=== PATIENT | male | born 1975 | race Two or more races ===

== ENCOUNTER 2022-04-12 14:12 | Inpatient (IN) | payer OTHER ==
[~2022-04-12] VITALS: Ht 182.9 cm; Wt 183.2 kg
[2022-04-12] MEDS ORDERED: hydrALAZINE HCL 20 MG/ML VL IV ONE (14:45)
[2022-04-12] MEDS ORDERED: ASPirin 81 mg TAB PO ONE (14:45)
[2022-04-12 15:18] LABS: Basophils # (auto) 0.1 10 ^3/uL (0-0.2); Basophils % (auto) 0.9 % (0.0-2.0); Eosinophils # (auto) 0.3 10 ^3/uL (0-0.8); Eosinophils % (auto) 2.6 % (0.0-7.0); Hematocrit 51.3 % (41.0-53.0); Hemoglobin 16.2 g/dL (13.5-17.5); Lymphocytes # (auto) 2.2 10 ^3/uL (0.4-5.4); Lymphocytes % (auto) 22.8 % (10.0-50.0); Mean Corpuscular Hemoglobin 28.1 pg (28.0-32.0); Mean Corpuscular Hgb Conc. 31.5 g/dL (32.0-36.0); Monocytes % (auto) 9.8 % (0.0-12.0); Neutrophils # (auto) 6.2 10 ^3/uL (1.6-8.6); Neutrophils % (auto) 63.9 % (37.0-80.0); Nucleated Red Blood Cells % 0.2 %; Red Blood Cells 5.77 10^6/uL (4.5-5.90); Red Cell Distribution Width 16.3 % (11.8-14.3); White Blood Cell 9.7 10^3/uL (4.4-10.8)
[2022-04-12 15:24] LABS: Albumin 3.1 g/dL (3.4-5.0); BUN/Creatinine Ratio 16.3; Calcium 9.1 mg/dL (8.5-10.1); Magnesium 2.2 mg/dL (1.6-2.6); Potassium 4.3 mmol/L (3.5-5.1)
[2022-04-12 15:26] LABS: Bilirubin, Total 1.3 mg/dL (0.2-1.0); Total Protein 7.9 g/dL (6.4-8.2)
[2022-04-12 16:14] LABS: INR 1.05 (0.9-1.15); Partial Thromboplastin Time 29.3 sec (24.6-33.4)
[2022-04-12 16:24] LABS: Urine Bacteria NONE SEEN /hpf (None Seen); Urine Blood 1+ /uL (Negative); Urine Hyaline Cast FEW /lpf (0 - 2); Urine Specific Gravity 1.016 (1.001-1.035); Urine WBC 3 /hpf (0 - 3)
[2022-04-12] MEDS ORDERED: ONDANSETRON HCL 4 MG/2 ML VIAL IV PRN (21:45)
[2022-04-12] MEDS ORDERED: MORPHINE SULFATE INJ 2 MG/ml SYRG IV PRN (21:45)
[2022-04-12] MEDS ORDERED: TEMAZEPAM 15 MG CAP PO PRN (21:45)
[2022-04-12] MEDS ORDERED: NITROGLYCERIN 0.4 MG SL TAB SL PRN (21:45)
[2022-04-12] MEDS ORDERED: LABETALOL HCL 5 MG/ML 4ML SYRINGE IV ONE (22:00)
[2022-04-12] MEDS ORDERED: FUROSEMIDE 40 MG/4 ML VIAL IV ONE (23:00)
[2022-04-13] MEDS: ACETAMINOPHEN 325 MG TAB PO PRN ×2 (04:09→23:26)
[2022-04-13 05:46] LABS: Basophils # (auto) 0.1 10 ^3/uL (0-0.2); Eosinophils # (auto) 0.1 10 ^3/uL (0-0.8); Eosinophils % (auto) 1.2 % (0.0-7.0); Hematocrit 43.9 % (41.0-53.0); Hemoglobin 14.6 g/dL (13.5-17.5); Lymphocytes # (auto) 1.4 10 ^3/uL (0.4-5.4); Lymphocytes % (auto) 13.7 % (10.0-50.0); Mean Corpuscular Hemoglobin 29.1 pg (28.0-32.0); Mean Corpuscular Hgb Conc. 33.2 g/dL (32.0-36.0); Mean Corpuscular Volume 87.6 fL (80.0-100.0); Monocytes % (auto) 9.7 % (0.0-12.0); Neutrophils # (auto) 7.4 10 ^3/uL (1.6-8.6); Neutrophils % (auto) 74.4 % (37.0-80.0); Red Blood Cells 5.01 10^6/uL (4.5-5.90); Red Cell Distribution Width 16.6 % (11.8-14.3)
[2022-04-13] MEDS ORDERED: FUROSEMIDE 20 MG/2 ML VIAL IV SCH (06:00)
[2022-04-13] MEDS: cloNIDine HCL 0.1 MG TAB PO PRN (06:09)
[2022-04-13 07:10] LABS: BUN/Creatinine Ratio 16.7; Calcium 8.7 mg/dL (8.5-10.1); Potassium 3.5 mmol/L (3.5-5.1)
[2022-04-13] MEDS ORDERED: MORPHINE SULFATE 4 MG/ML SYR/VIAL IV ONE (09:15)
[2022-04-13] MEDS ORDERED: amLODIPine BESYLATE 5 MG TAB PO SCH (10:00)
[2022-04-13] MEDS ORDERED: LISINOPRIL 10 MG TAB PO SCH (10:00)
[2022-04-13] MEDS: ENOXAPARIN SOD 40 MG/0.4 ML SYRINGE SC SCH (10:33)
[2022-04-13] MEDS: HCTZ 25 MG TAB PO SCH (10:33)
[2022-04-13] MEDS: ASPirin 81 mg TAB PO SCH (10:33)
[2022-04-13] MEDS: LOSARTAN POTASSIUM 50 MG TAB PO SCH (15:03)
[2022-04-13] MEDS: BUMETANIDE 2.5mg/10ml (0.25 mg/ml) INJ IV SCH (15:04)
[2022-04-13] MEDS: CARVEDILOL 3.125 MG TAB PO SCH (22:34)
[2022-04-13 22:44] VITALS: BP 150/96
[2022-04-13 22:46] VITALS: BP 150/96
[2022-04-14 05:00] VITALS: BP 132/80
[2022-04-14 05:17] LABS: Basophils # (auto) 0.1 10 ^3/uL (0-0.2); Basophils % (auto) 0.8 % (0.0-2.0); Eosinophils # (auto) 0.3 10 ^3/uL (0-0.8); Eosinophils % (auto) 3.4 % (0.0-7.0); Hematocrit 43.2 % (41.0-53.0); Hemoglobin 14.2 g/dL (13.5-17.5); Lymphocytes % (auto) 21.9 % (10.0-50.0); Mean Corpuscular Hemoglobin 28.8 pg (28.0-32.0); Mean Corpuscular Hgb Conc. 32.9 g/dL (32.0-36.0); Mean Corpuscular Volume 87.4 fL (80.0-100.0); Monocytes # (auto) 0.9 10 ^3/uL (0-1.3); Monocytes % (auto) 10.5 % (0.0-12.0); Neutrophils # (auto) 5.7 10 ^3/uL (1.6-8.6); Neutrophils % (auto) 63.4 % (37.0-80.0); Nucleated Red Blood Cells % 0.1 %; Red Blood Cells 4.95 10^6/uL (4.5-5.90); Red Cell Distribution Width 16.5 % (11.8-14.3)
[2022-04-14 05:33] LABS: BUN/Creatinine Ratio 18.4; Calcium 8.7 mg/dL (8.5-10.1); Potassium 3.6 mmol/L (3.5-5.1)
[2022-04-14] MEDS: BUMETANIDE 2.5mg/10ml (0.25 mg/ml) INJ IV SCH ×2 (06:43→18:00)
[2022-04-14] MEDS ORDERED: INFLUENZA QUAD 2022-2023 0.5 ML SYRG IM ONE (07:00)
[2022-04-14 09:00] VITALS: BP 159/89
[2022-04-14] MEDS: CARVEDILOL 3.125 MG TAB PO SCH ×2 (10:00→22:08)
[2022-04-14] MEDS: ENOXAPARIN SOD 40 MG/0.4 ML SYRINGE SC SCH (10:00)
[2022-04-14] MEDS: ASPirin 81 mg TAB PO SCH (11:16)
[2022-04-14] MEDS: LOSARTAN POTASSIUM 50 MG TAB PO SCH (11:17)
[2022-04-14] MEDS: HCTZ 25 MG TAB PO SCH (11:18)
[2022-04-14 14:00] VITALS: BP 149/89
[2022-04-14] MEDS: cefTRIAXone 1GM/50ML D5W 50 ML IV SCH (14:15)
[2022-04-14] MEDS: HYDROcodone-ACET 5/325MG TAB PO PRN (16:06)
[2022-04-14 16:30] VITALS: BP 129/101
[2022-04-14 22:00] VITALS: BP 138/98
[2022-04-14] MEDS: CLINDAMYCIN 300MG IV 50 ML IV SCH (22:08)
[2022-04-15 05:00] VITALS: BP 135/95
[2022-04-15] MEDS: BUMETANIDE 2.5mg/10ml (0.25 mg/ml) INJ IV SCH ×2 (05:31→17:37)
[2022-04-15] MEDS: CLINDAMYCIN 300MG IV 50 ML IV SCH ×2 (05:33→14:47)
[2022-04-15 06:10] LABS: Basophils # (auto) 0.1 10 ^3/uL (0-0.2); Eosinophils # (auto) 0.4 10 ^3/uL (0-0.8); Eosinophils % (auto) 4.4 % (0.0-7.0); Hematocrit 43.8 % (41.0-53.0); Hemoglobin 14.3 g/dL (13.5-17.5); Lymphocytes # (auto) 1.8 10 ^3/uL (0.4-5.4); Lymphocytes % (auto) 20.3 % (10.0-50.0); Mean Corpuscular Hemoglobin 28.6 pg (28.0-32.0); Mean Corpuscular Hgb Conc. 32.7 g/dL (32.0-36.0); Mean Corpuscular Volume 87.4 fL (80.0-100.0); Monocytes # (auto) 1.1 10 ^3/uL (0-1.3); Monocytes % (auto) 12.2 % (0.0-12.0); Neutrophils # (auto) 5.5 10 ^3/uL (1.6-8.6); Neutrophils % (auto) 62.1 % (37.0-80.0); Red Blood Cells 5.02 10^6/uL (4.5-5.90); Red Cell Distribution Width 16.4 % (11.8-14.3); White Blood Cell 8.8 10^3/uL (4.4-10.8)
[2022-04-15 06:27] LABS: Calcium 8.7 mg/dL (8.5-10.1); Potassium 3.7 mmol/L (3.5-5.1)
[2022-04-15 06:30] LABS: BUN/Creatinine Ratio 18.9
[2022-04-15 08:54] VITALS: BP 139/85
[2022-04-15] MEDS ORDERED: LISINOPRIL 10 MG TAB PO SCH (10:00)
[2022-04-15] MEDS ORDERED: INFLUENZA QUAD 2022-2023 0.5 ML SYRG IM ONE (10:30)
[2022-04-15] MEDS: cefTRIAXone 1GM/50ML D5W 50 ML IV SCH (10:33)
[2022-04-15] MEDS: ASPirin 81 mg TAB PO SCH (10:33)
[2022-04-15] MEDS: CARVEDILOL 3.125 MG TAB PO SCH ×2 (10:34→21:41)
[2022-04-15] MEDS: LOSARTAN POTASSIUM 50 MG TAB PO SCH (10:35)
[2022-04-15] MEDS: HCTZ 25 MG TAB PO SCH (10:36)
[2022-04-15] MEDS: ENOXAPARIN SOD 40 MG/0.4 ML SYRINGE SC SCH (10:36)
[2022-04-15] MEDS: HYDROcodone-ACET 5/325MG TAB PO PRN ×2 (10:38→21:46)
[2022-04-15 13:06] VITALS: BP 154/89
[2022-04-15] MEDS ORDERED: VANCOMYCIN PER PHARMACY 0 MG IV SCH (16:15)
[2022-04-15] MEDS: VANCOMYCIN 1GM/250ML 250 ML IV SCH (17:37)
[2022-04-15 18:12] VITALS: BP 149/102
[2022-04-15 22:00] VITALS: BP 165/103
[2022-04-16] MEDS: VANCOMYCIN 1GM/250ML 250 ML IV SCH ×3 (00:43→18:12)
[2022-04-16 05:00] VITALS: BP 133/74
[2022-04-16] MEDS: BUMETANIDE 2.5mg/10ml (0.25 mg/ml) INJ IV SCH ×2 (05:21→18:13)
[2022-04-16 06:36] LABS: Albumin 2.9 g/dL (3.4-5.0); Calcium 8.6 mg/dL (8.5-10.1); Potassium 4.1 mmol/L (3.5-5.1)
[2022-04-16 06:39] LABS: BUN/Creatinine Ratio 18.7; Phosphorus 4.2 mg/dL (2.5-4.90)
[2022-04-16 09:00] VITALS: BP 156/92
[2022-04-16] MEDS: cefTRIAXone 1GM/50ML D5W 50 ML IV SCH (09:19)
[2022-04-16] MEDS: ENOXAPARIN SOD 40 MG/0.4 ML SYRINGE SC SCH (10:00)
[2022-04-16] MEDS: LOSARTAN POTASSIUM 50 MG TAB PO SCH (10:52)
[2022-04-16] MEDS: ASPirin 81 mg TAB PO SCH (10:52)
[2022-04-16] MEDS: CARVEDILOL 3.125 MG TAB PO SCH ×2 (10:53→21:31)
[2022-04-16] MEDS: HCTZ 25 MG TAB PO SCH (10:53)
[2022-04-16 13:00] VITALS: BP 144/84
[2022-04-16] MEDS: Juven Orange Powder PACKET 27.5gm PO SCH (18:00)
[2022-04-16] MEDS: HYDROcodone-ACET 5/325MG TAB PO PRN (21:32)
[2022-04-16] MEDS: cloNIDine HCL 0.1 MG TAB PO PRN (21:32)
[2022-04-16 22:00] VITALS: BP 192/110
[2022-04-17] MEDS: VANCOMYCIN 1GM/250ML 250 ML IV SCH ×2 (01:13→09:44)
[2022-04-17 05:00] VITALS: BP 147/99
[2022-04-17] MEDS: BUMETANIDE 2.5mg/10ml (0.25 mg/ml) INJ IV SCH (06:44)
[2022-04-17 07:04] LABS: Albumin 2.7 g/dL (3.4-5.0); Calcium 8.8 mg/dL (8.5-10.1); Potassium 3.8 mmol/L (3.5-5.1)
[2022-04-17 07:06] LABS: BUN/Creatinine Ratio 20.4; Bilirubin, Total 1.3 mg/dL (0.2-1.0); Total Protein 6.9 g/dL (6.4-8.2)
[2022-04-17] MEDS: Juven Orange Powder PACKET 27.5gm PO SCH (08:00)
[2022-04-17 09:00] VITALS: BP 158/87
[2022-04-17] MEDS: ENOXAPARIN SOD 40 MG/0.4 ML SYRINGE SC SCH (10:00)
[2022-04-17] MEDS: LOSARTAN POTASSIUM 50 MG TAB PO SCH (10:30)
[2022-04-17] MEDS: HCTZ 25 MG TAB PO SCH (10:31)
[2022-04-17] MEDS: CARVEDILOL 3.125 MG TAB PO SCH (10:32)
[2022-04-17] MEDS: ASPirin 81 mg TAB PO SCH (10:32)
[2022-04-17] MEDS ORDERED: CARV6.25 PO (11:46)
[2022-04-17] MEDS ORDERED: HYDR25TA5 PO (11:46)
[2022-04-17] MEDS ORDERED: CLIN300C8 PO (11:46)
[2022-04-17] MEDS ORDERED: ASPI-325 PO (11:46)
[2022-04-17] MEDS ORDERED: LOSA-69 PO (11:46)
[2022-04-17] MEDS ORDERED: BUME1TAB25 PO (11:49)
[2022-04-17] MEDS: cloNIDine HCL 0.1 MG TAB PO PRN (12:59)
[2022-04-17 13:00] VITALS: BP 185/114
[2022-04-17 14:15] VITALS: BP 164/103
== END 2022-04-17 15:00 | disposition home or self-care (01) | DRG 199 ==
LOC: ER 14:16 → TELE 21:46 → TELE-WESTW 04-13 22:09
PROVIDERS: ADMIT Nurse Practitioner; ATTEND Nurse Practitioner Acute Care
DX: I16.0 Hypertensive urgency (principal); I50.33 Acute on chronic diastolic (congestive) heart failure; E44.0 Moderate protein-calorie malnutrition; L03.115 Cellulitis of right lower limb; I20.0 Unstable angina; L03.116 Cellulitis of left lower limb; I11.0 Hypertensive heart disease with heart failure; Z20.822 Contact with and (suspected) exposure to COVID-19; B95.62 Methicillin resistant Staphylococcus aureus infection as the cause of diseases classified elsewhere; E66.01 Morbid (severe) obesity due to excess calories; Z83.3 Family history of diabetes mellitus; Z91.14 Patient's other noncompliance with medication regimen; Z28.21 Immunization not carried out because of patient refusal
CPT/HCPCS: 36415; 71045; 80048; 80053; 80069; 80202; 81001; 83735; 83880; 84484; 85025; 85379; 85610; 85730; 87077; 87186; 87205; 87426; 93005; 93306; 93925; 93970; 96374; G0378; J0696; J3490